=== PATIENT | male | born 1955 | race Two or more races ===

== ENCOUNTER → 2018-01-15 06:56 | Outpatient (CLI) | payer OTHER, SELFPAY ==
[2018-01-15 07:20] LABS: CREATININE FINGERSTICK 0.9 mg/dL (0.70-1.30); EGFR FINGERSTICK > 60.0000 mL/min (>60)
--- NOTE | 2018-01-15 07:45 | MRI_ITS ---
STUDY: MR PELVIS WITH T WITHOUT CONTRAST REASON FOR EXAM: Male, 62 years old. Elevated PSA. Negative biopsy. TECHNIQUE: Standardized fat and water weighted pulse sequences were obtained in all 3 orthogonal planes, pre-and post contrast administration. 10 ml of Gadavist contrast material was administered intravenously for the contrast portion of the examination. COMPARISON: None. FINDINGS: The prostate measures 6.06 x 5.93 x 4.58 cm with a volume of 82.3 mL the central gland is markedly enlarged and heterogenous in signal intensity. This invaginates into the floor of the bladder. There is a cystic area is anterior to the urethra. The central zone is uniformly low signal slightly greater than adjacent skeletal muscle on T1-weighted imaging. It is heterogenous in signal intensity on T2 regions predominantly slightly higher in signal intensity than skeletal muscle with focal areas of higher signal including fluid signal intensity. There is appears heterogenous on diffusion weighted imaging without dropout on fat sat images. There is heterogenous enhancement on postgadolinium imaging with areas of nonenhancement, including the anterior cystic foci as well as several areas as in the posterior central gland which correlate with foci of higher signal intensity on the T2 weighted imaging. The peripheral zone is thin and demonstrates high signal on both T2 and diffusion-weighted imaging. There is no focal area of signal abnormality. There is uniform enhancement on T2-weighted imaging. There is thickening and trabeculation of the urinary bladder wall. There is no evidence of filling defects or focal mass. Normal visualized small intestine. Normal visualized colon. There is no pelvic fluid. There is no pelvic mass lesion or lymphadenopathy. Normal visualized pelvic arteries. Normal osseous structures. There are small bilateral inguinal hernias of omental fat. The remainder of the visualized abdominal wall appears normal. MRI/Pelvis W/WO Contrast IMPRESSION: 1. Enlarged prostate. The enlargement involves the central zone which is heterogenous in signal intensity and enhancement and extends into the floor of the bladder. The possibility of malignancy in this area cannot be ruled out on the current study. The peripheral zone is normal in size and signal intensity. There is no abnormal enhancement. 2. Trabeculated thickened bladder wall thought to be secondary to bladder outlet obstruction by the enlarged prostate. 3. Bilateral inguinal hernias of omental fat. 4. No other evidence of pelvic abnormality. Electronically Signed: Jackson Franco DO at 16:04 EDT Tel [phone], Service support ,
== END ==
PROVIDERS: Family Provider Family Medicine; PCP Family Medicine; Visit Provider Urology
DX: R97.20 Elevated prostate specific antigen [PSA] (principal)
CPT/HCPCS: 72197; A9585

== ENCOUNTER → 2022-12-30 | Outpatient (CLI) | payer MEDICARE, SELFPAY ==
--- NOTE | 2022-12-30 11:36 | MRI_ITS ---
PROSTATE MRI HISTORY/INDICATION: Elevated PSA TECHNIQUE: Multiplanar, multisequence imaging of the pelvis in accordance with PIRADS recommendations before and after intravenous administration of 19 mL Clariscan on a 1.5 TE platform using external phased array coil. Dedicated 3 plane small field of view T2 FSE, axial diffusion-weighted imaging with width B values 50-800 s/mm2 and calculated w=3671 s/mm2 and ADC map; and axial 3-D dynamic contrast enhanced T1 weighted images with temporal resolution in 3 mm slice thickness in addition to full pelvis postcontrast T1-weighted imaging. 3D post processing was performed on an independent workstation ([employer]) for purposes of volumetric evaluation of the prostate gland and localization of below described nodule, which was marked on reconstructed images for anticipated image guided biopsy by Urology service. COMPARISON:None FINDINGS: Size: 5.0 x 5.2 x 6.0 (Lx W x H) cm for 81.12 cubic cm. Quality: Excellent Hemorrhage: Not present Peripheral zone: Thin and heterogeneous high signal. No focal lesion. Transition zone: Moderate heterogeneity consistent with prostatic hyperplasia. Focal finding as below. Lesion #1: Location: right midgland transition zone anterior (RM-TZa) on image 17 series 9 Size: 1.0 x 1.4 cm T2: Hypointense nodule with obscured margins without extraprostatic extension. DWI: focal slightly hyperintense on high b-value DWI and slightly hypointense on ADC on image 20 series 600 and series 601, respectively. DCE: No early enhancement, negative Prostate margin: NO gross extraprostatic extension Lesion overall PI-RADS: 4/5 Neurovascular bundles: Not involved Seminal vesicles: not involved Lymph nodes: no lymphadenopathy Bones: no osseous metastases suggested Other pelvic organs: Trabeculated urinary bladder MRI/Pelvis W/WO Contrast IMPRESSION: 1. PI-RADS 4 - High (clinically significant cancer is likely to be present). PI?RADSR v2.1 Assessment Categories PI-RADS 1 ? Very low (clinically significant cancer is highly unlikely to be present) PI-RADS 2 ? Low (clinically significant cancer is unlikely to be present) PI-RADS 3 ? Intermediate (the presence of clinically significant cancer is equivocal) PI-RADS 4 ? High (clinically significant cancer is likely to be present) PI-RADS 5 ? Very high (clinically significant cancer is highly likely to be present) Electronically Signed: Ismael Kuhn (Brooks), at 9:11 EDT ,
[2022-12-31 10:40] LABS: CREATININE FINGERSTICK < 0.9 mg/dL (0.70-1.30); EGFR FINGERSTICK > 60.0000 mL/min (>60)
== END | disposition home or self-care (01) ==
PROVIDERS: PCP Family Medicine; Referring Provider Urology; Visit Provider Urology
DX: R97.20 Elevated prostate specific antigen [PSA] (principal)
CPT/HCPCS: 72197; A9575

== ENCOUNTER → 2023-01-21 | Outpatient (CLI) | payer MEDICARE, SELFPAY ==
--- NOTE | 2023-01-21 | PROSBIL_PTH ---
PATIENT: DILEEP JOHNSON LOC: [facility] U#:[id number] AGE/SX: 67/M ROOM: RE01/21/[address]: Dr. Armando Byrd MD : 1955 BED: DIS: 01/21/2023 SPEC #: [id number] RECD: 01/21/23 08:00 STATUS: NOEMY RERanjana #: [id number] FAUSTINA: 01/21/23 00:[address]: Armando Byrd DEPT: SURGICAL PATHOLOGY RECD BY: Marco Antonio Hernandez ENTERED: 01/22/23 07:19 SP TYPE: PROST BX TIM DR: Dr. Jude Giles MD Tissues: A - PROSTATE RIGHT B - PROSTATE RIGHT C - PROSTATE RIGHT D - PROSTATE LEFT E - PROSTATE LEFT F - PROSTATE LEFT Procedures: PROSTATE BX HEADER OPERATION: Prostate biopsy PRE-OP DIAGNOSIS: Elevated PSA TISSUE SUBMITTED: A - Right apex, B - Right mid, C - Right base, D - Left apex, E - Left mid, F - Left base MICROSCOPIC DIAGNOSIS A. Right prostate, apex, core biopsy: Glandular atrophy. Chronic inflammation with focal acute inflammation. B. Right prostate, mid, core biopsy: Glandular atrophy and mild chronic inflammation. See comment. C. Right prostate, base, core biopsy: Glandular atrophy and mild chronic inflammation. See comment. D. Left prostate, apex, core biopsy: Glandular atrophy and mild chronic inflammation. E. Left prostate, mid, core biopsy: Glandular atrophy and mild chronic inflammation. F. Left prostate, base, core biopsy: Glandular atrophy and mild chronic inflammation. See comment. AM:tianna 01/23/2023 COMMENT B, C & F - Immunohistochemistry ([id number]) supports the above diagnosis. MICROSCOPIC DESCRIPTION Slides are reviewed. GROSS DESCRIPTION A - Received is one container designated prostate, right apex. The specimen consists of two elongated fragments of light ire[place]-white soft tissue measuring 1.2 and 1.5 cm in length and 0.1 cm in diameter. The specimen is totally submitted in one cassette. B - Received is one container designated prostate, right mid. The specimen consists of two elongated fragments of light ireland-white soft tissue measuring 2.0 and 2.03 cm in length and 0.1 cm in diameter. The specimen is totally submitted in one cassette. C - Received is one container designated prostate, right base. The specimen consists of two elongated fragments of light ireland-white soft tissue measuring 1.5 and 2.4 cm in length and 0.1 cm in diameter. The specimen is totally submitted in one cassette. D - Received is one container designated prostate, left apex. The specimen consists of two elongated fragments of light ireland-white soft tissue measuring 1.0 and 1.6 cm in length and 0.1 cm in diameter. The specimen is totally submitted in one cassette. E - Received is one container designated prostate, left mid. The specimen consists of two elongated fragments of light ireland-white soft tissue each measuring 1.9 cm in length and 0.1 cm in diameter. The specimen is totally submitted in one cassette. F - Received is one container designated prostate, left base. The specimen consists of two elongated fragments of light ireland-white soft tissue each measuring 1.5 cm in length and 0.1 cm in diameter. The specimen is totally submitted in one cassette. / SJ:rg 01/22/2023 TC:2 CPT: 23876 x6
--- NOTE | 2023-01-21 | IMM_PTH ---
PATIENT: DILEEP JOHNSON LOC: [facility] U#:[id number] AGE/SX: 67/M ROOM: RE01/21/[address]: Dr. Armando Byrd MD : 1955 BED: DIS: 01/21/2023 SPEC #: [id number] RECD: 01/23/23 13:03 STATUS: NOEMY REQ #: [id number] FAUSTINA: 01/21/23 00:[address]: Armando Byrd DEPT: IMMUNOHISTOCHEMISTRY RECD BY: Danielle Morgan ENTERED: 01/23/23 13:05 SP TYPE: IMMUNO OTHR DR: Dr. Jude Giles MD Tissues: B - PROSTATE RIGHT C - PROSTATE RIGHT F - PROSTATE LEFT Procedures: 34BE12 (add) P40 (add) 34BE12 (initial) PHYSICIAN & INSTITUTION [place] [id number] SPECIMEN INFORMATION: Tissue Source: B - Right prostate, mid, C - Right prostate, base, F - Left prostate, base Clinical Info: Elevated PSA Specimen Number: [id number] B, C & F CPT code: 92870, 49881 x5 METHODOLOGY: Deparaffinized sections of prefer/formalin-fixed tissue or PAP/DQ stained slides are incubated with monoclonal/polyclonal antibodies/oligonucleotide probes. Localization is made via biotin free immunoperoxidase method. Appropriate controls are performed and reacted as expected. Results on target cell population are indicated in the following table: RESULTS: ANTIBODY / CLONE RESULT Block B 34BE12 (34BE12) positive P40 (BC28) positive Block C 34BE12 (34BE12) positive P40 (BC28) positive Block F 34BE12 (34BE12) positive P40 (BC28) positive These tests were developed and their performance characteristics determined by [facility]. They may not have been cleared or approved by the [place]. Food and Drug Administration. The FDA has determined that such clearance or approval is not necessary. The above immunohistochemical/dualISH markers are ordered and reviewed by the Pathologist. INTERPRETATION: B. Right prostate, mid, core biopsy: Benign prostatic tissue. C. Right prostate, base, core biopsy: Benign prostatic tissue. F. Left prostate, base, core biopsy: Benign prostatic tissue. AM:tianna 01/24/2023
== END | disposition home or self-care (01) ==
LOC: LABSPEC 15:47
PROVIDERS: PCP Family Medicine; Referring Provider Urology; Visit Provider Urology
DX: N41.9 Inflammatory disease of prostate, unspecified (principal); R97.20 Elevated prostate specific antigen [PSA]; I89.8 Other specified noninfective disorders of lymphatic vessels and lymph nodes
CPT/HCPCS: 88305; 88341; 88342; G0416